=== PATIENT | female | born 1950 | race Caucasian/White ===

== ENCOUNTER 2016-12-28 20:04 | Emergency (ER) | payer MEDICARE ==
[2016-12-28] MEDS ORDERED: ONDANSETRON 4 MG TAB.RAPDIS PO ONE (23:37)
[2016-12-28] MEDS ORDERED: AMOXICILLIN TR/POT CLAVULANATE 500-125 MG TAB PO ONE (23:37)
[2016-12-28] MEDS ORDERED: AMOXICILLIN TR/POT CLAVULANATE 250-125 MG TAB PO ONE (23:37)
[2016-12-28] MEDS ORDERED: HYDROCODONE/ACETAMINOPHEN 5-325 MG 6 TAB/DSPK PO PRN (23:45)
--- NOTE | 2016-12-28 23:46 | ER Document Report ---
ED Animal Bite - General Mode of Arrival: Ambulatory Information source: Patient - HPI Patient complains to provider of: cat bite Location of injury: [place] <PATRICIA LI - Last Filed: 12/29/16 00:12> - General TRAVEL OUTSIDE OF THE [place] IN LAST 30 DAYS: No <KODI REEVES - Last Filed: 12/29/16 05:54> - General Chief Complaint: Cat Bite Stated Complaint: POSSIBLE CAT BITE Notes: Patient is a 66 year old female who presents to the emergency department complaining of a cat bite to her left wrist this morning at 0315. Patient states she washed the bite with warm soapy water immediately after the incident. Patient reports throughout the day the area became tender and swollen. Patient reports her only allergy is to Nexium. Patient also reports bites on her right hand that are not bothersome. Patient denies being on any blood thinners and states her last tetanus shot was last year. (PATRICIA LI) - Related Data Allergies/Adverse Reactions: nickel [Nickel] Allergy (Intermediate, Verified 12/10/15 14:34) itching Past Medical History - General Information source: Patient - Social History Family History: Reviewed & Not Pertinent <PATRICIA LI - Last Filed: 12/29/16 00:12> - Social History Smoking Status: Unknown if Ever Smoked Family History: CAD - A brother of a massive [place]. Mother of stomach cancer. Father and a sister have diabetes. Patient has suicidal ideation: No Patient has homicidal ideation: No - Past Medical History Cardiac Medical History: Reports: Hx Hypercholesterolemia, Hx Hypertension - reports quit her HTN medication in jul. Denies: Hx Coronary Artery Disease, Hx Heart Attack Pulmonary Medical History: Denies: Hx Asthma, Hx Bronchitis, Hx COPD, Hx Pneumonia, Hx Tuberculosis Neurological Medical History: Denies: Hx Cerebrovascular Accident, Hx Seizures Renal/ Medical History: Denies: Hx Peritoneal Dialysis GI Medical History: Reports: Hx Gastroesophageal Reflux Disease Musculoskeltal Medical History: Reports Hx Arthritis Psychiatric Medical History: Reports: Hx Anxiety Denies: Hx Depression Past Surgical History: Reports: Hx Cholecystectomy, Hx Tubal Ligation. Denies: Hx Hysterectomy - Immunizations Immunizations up to date: Yes Hx Diphtheria, Pertussis, Tetanus Vaccination: Yes Hx Pneumococcal Vaccination: 11/16/14 <KODI REEVES - Last Filed: 12/29/16 05:54> Review of Systems - Review of Systems Constitutional: No symptoms reported EENT: No symptoms reported Cardiovascular: No symptoms reported Respiratory: No symptoms reported Gastrointestinal: No symptoms reported Genitourinary: No symptoms reported Female Genitourinary: No symptoms reported Musculoskeletal: No symptoms reported Skin: See HPI, Lesions - and swelling to left wrist Hematologic/Lymphatic: No symptoms reported Neurological/Psychological: No symptoms reported -: Yes All other systems reviewed and negative <PATRICIA LI - Last Filed: 12/29/16 00:12> Physical Exam - Vital signs Interpretation: Normal - General General appearance: Appears well, Alert - HEENT Head: Normocephalic, Atraumatic - Respiratory Respiratory status: No respiratory distress - Extremities General lower extremity: Normal inspection Forearm: Abrasion - Abrasions to left forearm with surrounding erythema and tenderness to palpation over the area which is approximately 10cm in diameter - Neurological Neuro grossly intact: Yes Cognition: Normal Orientation: AAOx4 Frohna Coma Scale Eye Opening: Spontaneous Joseph Coma Scale Verbal: Oriented Frohna Coma Scale Motor: Obeys Commands Frohna Coma Scale Total: 15 Speech: Normal - Psychological Associated symptoms: Normal affect, Normal mood - Skin Skin Temperature: Warm Skin Moisture: Dry Skin Color: Normal <PATRICIA LI - Last Filed: 12/29/16 00:12> Course <PATRICIA LI - Last Filed: 12/29/16 00:12> <KODI REEVES - Last Filed: 12/29/16 05:54> - Re-evaluation Re-evalutation: 12/29/16 Patient with Bite/scratch to forearm and surrounding erythema. It has been marked with a pen. Patient is to return if the redness moves outside the marked area. Patient will be discharged home with Augmentin. No other complaints. Stable for discharge. (KODI REEVES) - Vital Signs Vital signs: Temp Pulse Resp BP Pulse Ox 97.6 F 65 18 117/75 98 12/29/16 00:03 12/29/16 00:03 12/28/16 21:19 12/29/16 00:03 12/29/16 00:03 (PATRICIA LI) (KODI REEVES) Discharge <PATRICIA LI - Last Filed: 12/29/16 00:12> <KODI REEVES - Last Filed: 12/29/16 05:54> - Discharge Clinical Impression: Cat bite Qualifiers: Encounter type: initial encounter Qualified Code(s): W55.01XA - Bitten by cat, initial encounter Cellulitis Qualifiers: Site of cellulitis: extremity Site of cellulitis of extremity: upper extremity Laterality: left Qualified Code(s): L03.114 - Cellulitis of left upper limb Condition: Stable Disposition: HOME, SELF-CARE Instructions: Animal Bites ([facility]), Cellulitis ([facility]) Additional Instructions: Please return to the ER or to your doctor's office in 24-48 hours for wound re- evaluation. Return sooner if you have any concerns. Prescriptions: Amox Tr/Potassium Clavulanate [Augmentin 875-125 Tablet] 1 tab PO BID 10 Days Forms: Return to Work Scribe Attestation: 12/29/16 05:54 I personally performed the services described in the documentation, reviewed and edited the documentation which was dictated to the scribe in my presence, and it accurately records my words and actions. (KODI REEVES) Scribe Documentation - Scribe Written by Valeria:: valeria Ballard, 12/29/16, 1213 acting as scribe for :: Polo <PATRICIA LI - Last Filed: 12/29/16 00:12>
[2016-12-29 00:06] VITALS: BP 117/75
== END 2016-12-29 00:12 | disposition home or self-care (01) ==
LOC: ER 20:04
DX: L03.114 Cellulitis of left upper limb (principal); S61.552A Open bite of left wrist, initial encounter; W55.01XA Bitten by cat, initial encounter
CPT/HCPCS: 99283; A9270 ×4; J3490; S0119

== ENCOUNTER 2016-12-29 12:15 | Emergency (ER) | payer MEDICARE ==
[2016-12-29 12:19] VITALS: BP 136/65
[2016-12-29] MEDS ORDERED: AMPICILLIN SOD/SULBACTAM 3 GM VIAL IV ONE (12:34)
--- NOTE | 2016-12-29 12:35 | ER Document Report ---
ED Medical Screen (RME) - General Stated Complaint: SKIN PROBLEM Time seen by provider: 12:32 Mode of Arrival: Ambulatory Information source: Patient Notes: 66-year-old female seen for Bite infection last night in the volar left wrist. The red area has gone past the pen daniel and she was told to come to the emergency room if that occurred. No fever. She has had 2 doses of Augmentin. Not diabetic. I have greeted and performed a rapid initial assessment of this patient. A comprehensive ED assessment, evaluation of the patient, analysis of test results , and completion of the medical decision making process will be contacted by additional ED providers. TRAVEL OUTSIDE OF THE [place] IN LAST 30 DAYS: No - Related Data Allergies/Adverse Reactions: esomeprazole [From Nexium] Allergy (Verified 12/29/16 12:32) Past Medical History - Past Medical History Cardiac Medical History: Reports: Hx Hypercholesterolemia, Hx Hypertension - reports quit her HTN medication in jul. Denies: Hx Coronary Artery Disease, Hx Heart Attack Pulmonary Medical History: Denies: Hx Asthma, Hx Bronchitis, Hx COPD, Hx Pneumonia, Hx Tuberculosis Neurological Medical History: Denies: Hx Cerebrovascular Accident, Hx Seizures Renal/ Medical History: Denies: Hx Peritoneal Dialysis GI Medical History: Reports: Hx Gastroesophageal Reflux Disease Musculoskeltal Medical History: Reports Hx Arthritis Psychiatric Medical History: Reports: Hx Anxiety Denies: Hx Depression Past Surgical History: Reports: Hx Cholecystectomy, Hx Tubal Ligation. Denies: Hx Hysterectomy - Immunizations Immunizations up to date: Yes Hx Diphtheria, Pertussis, Tetanus Vaccination: Yes Physical Exam - Vital signs Vitals: Temp Pulse Resp BP Pulse Ox 98.4 F 83 14 136/65 H 93 12/29/16 12:18 12/29/16 12:18 12/29/16 12:18 12/29/16 12:18 12/29/16 12:18 Course - Vital Signs Vital signs: Temp Pulse Resp BP Pulse Ox 98.4 F 83 14 136/65 H 93 12/29/16 12:18 12/29/16 12:18 12/29/16 12:18 12/29/16 12:18 12/29/16 12:18
[2016-12-29 13:01] LABS: ABSOLUTE BASOPHILS # (AUTO) 0.1 10^3/uL (0.0-0.2); ABSOLUTE EOSINOPHILS # (AUTO) 0.5 10^3/uL (0.0-0.6); ABSOLUTE LYMPHOCYTES (AUTO) 1.9 10^3/uL (0.5-4.7); ABSOLUTE MONOCYTES (AUTO) 0.7 10^3/uL (0.1-1.4); BASOPHILS % (AUTO) 0.8 % (0-2); EOSINOPHILS % (AUTO) 5.1 % (0-6); HEMATOCRIT 37.2 % (36.0-47.0); HEMOGLOBIN 12.2 g/dL (12.0-15.5); HGB HCT DIFFERENCE -0.6; LYMPHOCYTES % (AUTO) 18.9 % (13-45); MEAN CORPUSCULAR HEMOGLOBIN 28.3 pg (27.0-33.4); MEAN CORPUSCULAR HGB CONC 32.9 g/dL (32.0-36.0); MEAN CORPUSCULAR VOLUME 86 fl (80-97); MONOCYTES % (AUTO) 6.5 % (3-13); RED BLOOD COUNT 4.31 10^6/uL (3.72-5.28); RED CELL DISTRIBUTION WIDTH 14.2 % (11.5-14.0); SEGMENTED NEUTROPHILS % (AUTO) 68.7 % (42-78); WHITE BLOOD COUNT 10.1 10^3/uL (4.0-10.5)
[2016-12-29 13:21] LABS: ALANINE AMINOTRANSFERASE 31 U/L (9-52); ALBUMIN 4.6 g/dL (3.5-5.0); ALKALINE PHOSPHATASE 79 U/L (38-126); ANION GAP 10 (5-19); ASPARTATE AMINO TRANSFERASE 28 U/L (14-36); BILIRUBIN,TOTAL 0.5 mg/dL (0.2-1.3); BLOOD UREA NITROGEN 9 mg/dL (7-20); CALCIUM 9.2 mg/dL (8.4-10.2); CARBON DIOXIDE 29 mmol/L (22-30); CHLORIDE 105 mmol/L (98-107); CREATININE RESULT 0.79 mg/dL (0.52-1.25); GLUCOSE 96 mg/dL (75-110); SODIUM 144.2 mmol/L (137-145); TOTAL PROTEIN 8.1 g/dL (6.3-8.2)
[2016-12-29] MEDS ORDERED: OXYCODONE-ACETAMINOPHEN 5-325 MG TABLET PO ONE (14:47)
--- NOTE | 2016-12-29 14:48 | ER Document Report ---
ED General - General Chief Complaint: Cat Bite Stated Complaint: SKIN PROBLEM Mode of Arrival: Ambulatory Information source: Patient Notes: 66-year-old female presents with complaints of left forearm cellulitis from cat bite , patient was seen here yesterday area was outlined, denies any discharge from the area. Patient took 1 dose of Augmentin last night 1 dose this morning and notes that there is a little bit of redness outside of the outline. Denies any streaking or any other concerns. Denies any fevers TRAVEL OUTSIDE OF THE [place] IN LAST 30 DAYS: No - HPI Onset: Other Onset/Duration: Persistent Quality of pain: Achy Severity: Mild Pain Level: 1 Associated symptoms: None Exacerbated by: Denies Relieved by: Denies Similar symptoms previously: Yes Recently seen / treated by doctor: Yes - Related Data Allergies/Adverse Reactions: esomeprazole [From Nexium] Allergy (Verified 12/29/16 12:32) Past Medical History - General Information source: Patient - Social History Smoking Status: Never Smoker Cigarette use (# per day): No Chew tobacco use (# tins/day): No Smoking Education Provided: No Frequency of alcohol use: None Drug Abuse: None Family History: CAD - A brother of a massive [place]. Mother of stomach cancer. Father and a sister have diabetes. Patient has suicidal ideation: No Patient has homicidal ideation: No - Past Medical History Cardiac Medical History: Reports: Hx Hypercholesterolemia, Hx Hypertension - reports quit her HTN medication in jul. Denies: Hx Coronary Artery Disease, Hx Heart Attack Pulmonary Medical History: Denies: Hx Asthma, Hx Bronchitis, Hx COPD, Hx Pneumonia, Hx Tuberculosis Neurological Medical History: Denies: Hx Cerebrovascular Accident, Hx Seizures Renal/ Medical History: Denies: Hx Peritoneal Dialysis GI Medical History: Reports: Hx Gastroesophageal Reflux Disease Musculoskeltal Medical History: Reports Hx Arthritis Psychiatric Medical History: Reports: Hx Anxiety Denies: Hx Depression Past Surgical History: Reports: Hx Cholecystectomy, Hx Tubal Ligation. Denies: Hx Hysterectomy - Immunizations Immunizations up to date: Yes Hx Diphtheria, Pertussis, Tetanus Vaccination: Yes Hx Pneumococcal Vaccination: 11/16/14 Review of Systems - Review of Systems Notes: REVIEW OF SYSTEMS: CONSTITUTIONAL : Denies fever, chills, or sweats. Denies recent illness. EENT: Denies eye, ear, throat, or mouth pain or symptoms. Denies nasal or sinus congestion or discharge. Denies throat, tongue, or mouth swelling or difficulty swallowing. CARDIOVASCULAR: Denies chest pain. Denies palpitations or racing or irregular heart beat. Denies ankle edema. RESPIRATORY: Denies cough, cold, or chest congestion. Denies shortness of breath, difficulty breathing, or wheezing. GASTROINTESTINAL: Denies abdominal pain or distention. Denies nausea, vomiting , or diarrhea. Denies blood in vomitus, stools, or per rectum. Denies black, tarry stools. Denies constipation. GENITOURINARY: Denies difficulty urinating, painful urination, burning, frequency, blood in urine, or discharge. FEMALE GENITOURINARY: Denies vaginal bleeding, heavy or abnormal periods, irregular periods. Denies vaginal discharge or odor. MUSCULOSKELETAL: Denies back or neck pain or stiffness. Denies joint pain or swelling. SKIN: Left forearm redness HEMATOLOGIC : Denies easy bruising or bleeding. LYMPHATIC: Denies swollen, enlarged glands. NEUROLOGICAL: Denies confusion or altered mental status. Denies passing out or loss of consciousness. Denies dizziness or lightheadedness. Denies headache. Denies weakness or paralysis or loss of use of either side. Denies problems with gait or speech. Denies sensory loss, numbness, or tingling. Denies seizures. PSYCHIATRIC: Denies anxiety or stress. Denies depression, suicidal ideation, or homicidal ideation. ALL OTHER SYSTEMS REVIEWED AND NEGATIVE. Dictation was performed using [employer] voice recognition software PHYSICAL EXAMINATION: GENERAL: Well-appearing, well-nourished and in no acute distress. HEAD: Atraumatic, normocephalic. EYES: Pupils equal round and reactive to light, extraocular movements intact, conjunctiva are normal. ENT: Nares patent, oropharynx clear without exudates. Moist mucous membranes. NECK: Normal range of motion, supple without lymphadenopathy LUNGS: Breath sounds clear to auscultation bilaterally and equal. No wheezes rales or rhonchi. HEART: Regular rate and rhythm without murmurs ABDOMEN: Soft, nontender, nondistended abdomen. No guarding, no rebound. No masses appreciated. Female : deferred Musculoskeletal: Normal range of motion, no pitting or edema. No cyanosis. NEUROLOGICAL: Cranial nerves grossly intact. Normal speech, normal gait. Normal sensory, motor exams PSYCH: Normal mood, normal affect. SKIN: redness of left forearm that notes to 3 mm extension from the outline proximally. no discharge , mutiple superficial abrasions Physical Exam - Vital signs Vitals: Temp Pulse Resp BP Pulse Ox 98.4 F 83 14 136/65 H 93 12/29/16 12:18 12/29/16 12:18 12/29/16 12:18 12/29/16 12:18 12/29/16 12:18 Course - Re-evaluation Re-evalutation: 12/29/16 14:51 Lab work notes no significant abnormality, patient does have a small amount of extension however has only been on antibiotics for less than 24 hours, at this time I do not believe it is appropriate for IV antibiotics or admission, as the patient has not had the ability to fail outpatient treatment yet. An x-ray has been ordered to rule out any foreign body as well. Given that tetanus is up-to- date and patient is on appropriate antibiotics, I believe another days worth of oral antibiotics prior to IV antibiotics is more appropriate form of action. Family has been made clear that they return tomorrow with further extension that they will require IV antibiotics and admission After performing a Medical Screening Examination, I estimate there is LOW risk for OPEN FRACTURE, COMPARTMENT SYNDROME, TENDON RUPTURE, ACUTE NEUROVASCULAR INJURY, or RETAINED FOREIGN BODY, thus I consider the discharge disposition reasonable. Also, there is no evidence or peritonitis, sepsis, or toxicity. The patient and I have discussed the diagnosis and risks, and we agree with discharging home with close follow-up with the understanding that symptoms and presentations can change. We also discussed returning to the Emergency Department immediately if new or worsening symptoms occur. We have discussed the symptoms which are most concerning (e.g., changing or worsening pain, fever , numbness, weakness, cool or painful digits) that necessitate immediate return. 12/29/16 15:18 - Vital Signs Vital signs: Temp Pulse Resp BP Pulse Ox 98.4 F 83 14 136/65 H 93 12/29/16 12:18 12/29/16 12:18 12/29/16 12:18 12/29/16 12:18 12/29/16 12:18 - Laboratory Result Diagrams: 12/29/16 12:47 12/29/16 12:47 Laboratory results interpreted by me: 12/29/16 12:47 RDW 14.2 H Discharge - Discharge Clinical Impression: Cat bite Qualifiers: Encounter type: initial encounter Qualified Code(s): W55.01XA - Bitten by cat, initial encounter Cellulitis Qualifiers: Site of cellulitis: extremity Site of cellulitis of extremity: upper extremity Laterality: left Qualified Code(s): L03.114 - Cellulitis of left upper limb Condition: Stable Disposition: HOME, SELF-CARE Additional Instructions: recheck in 24 hours for evaluation or sooner if there are any other concerns
== END 2016-12-29 15:30 | disposition home or self-care (01) ==
LOC: ER 12:15
DX: S51.852A Open bite of left forearm, initial encounter (principal); L03.114 Cellulitis of left upper limb; W55.01XA Bitten by cat, initial encounter; Y92.009 Unspecified place in unspecified non-institutional (private) residence as the place of occurrence of the external cause; I10 Essential (primary) hypertension; Z88.8 Allergy status to other drugs, medicaments and biological substances
CPT/HCPCS: 99283; 36415; 85025; 80053; 73090; A9270

== ENCOUNTER 2017-03-22 06:12 | Emergency (ER) | payer MEDICARE ==
[2017-03-22] MEDS ORDERED: HYDROCODONE/ACETAMINOPHEN 5-325 MG TABLET PO ONE (08:47)
--- NOTE | 2017-03-22 08:48 | ER Document Report ---
ED General - General Chief Complaint: Fall Injury Stated Complaint: FALL/HIP PAIN Mode of Arrival: Medic Information source: Patient Notes: 66-year-old female presents with complaints of right hip pain and low back pain after fall. Patient is able to angulate denies any numbness weakness loss of bowel or bladder function. TRAVEL OUTSIDE OF THE [place] IN LAST 30 DAYS: No - HPI Onset: Just prior to arrival Onset/Duration: Sudden Quality of pain: Achy Severity: Mild Pain Level: 1 Associated symptoms: Other Exacerbated by: Movement Relieved by: Denies Similar symptoms previously: No Recently seen / treated by doctor: No - Related Data Allergies/Adverse Reactions: esomeprazole [From Nexium] Allergy (Verified 03/22/17 06:15) Past Medical History - Social History Smoking Status: Never Smoker Cigarette use (# per day): No Chew tobacco use (# tins/day): No Smoking Education Provided: No Frequency of alcohol use: Occasional Drug Abuse: None Family History: CAD - A brother of a massive [place]. Mother of stomach cancer. Father and a sister have diabetes. - Past Medical History Cardiac Medical History: Reports: Hx Hypercholesterolemia, Hx Hypertension - reports quit her HTN medication in jul. Denies: Hx Coronary Artery Disease, Hx Heart Attack Pulmonary Medical History: Denies: Hx Asthma, Hx Bronchitis, Hx COPD, Hx Pneumonia, Hx Tuberculosis Neurological Medical History: Denies: Hx Cerebrovascular Accident, Hx Seizures Renal/ Medical History: Denies: Hx Peritoneal Dialysis GI Medical History: Reports: Hx Gastroesophageal Reflux Disease Musculoskeltal Medical History: Reports Hx Arthritis Psychiatric Medical History: Reports: Hx Anxiety Denies: Hx Depression Past Surgical History: Reports: Hx Cholecystectomy, Hx Tubal Ligation. Denies: Hx Hysterectomy - Immunizations Immunizations up to date: Yes Hx Diphtheria, Pertussis, Tetanus Vaccination: Yes Hx Pneumococcal Vaccination: 11/16/14 Review of Systems - Review of Systems Notes: REVIEW OF SYSTEMS: CONSTITUTIONAL : Denies fever, chills, or sweats. Denies recent illness. EENT: Denies eye, ear, throat, or mouth pain or symptoms. Denies nasal or sinus congestion or discharge. Denies throat, tongue, or mouth swelling or difficulty swallowing. CARDIOVASCULAR: Denies chest pain. Denies palpitations or racing or irregular heart beat. Denies ankle edema. RESPIRATORY: Denies cough, cold, or chest congestion. Denies shortness of breath, difficulty breathing, or wheezing. GASTROINTESTINAL: Denies abdominal pain or distention. Denies nausea, vomiting , or diarrhea. Denies blood in vomitus, stools, or per rectum. Denies black, tarry stools. Denies constipation. GENITOURINARY: Denies difficulty urinating, painful urination, burning, frequency, blood in urine, or discharge. FEMALE GENITOURINARY: Denies vaginal bleeding, heavy or abnormal periods, irregular periods. Denies vaginal discharge or odor. MUSCULOSKELETAL: Admits to back pain right hip pain SKIN: Denies rash, lesions or sores. HEMATOLOGIC : Denies easy bruising or bleeding. LYMPHATIC: Denies swollen, enlarged glands. NEUROLOGICAL: Denies confusion or altered mental status. Denies passing out or loss of consciousness. Denies dizziness or lightheadedness. Denies headache. Denies weakness or paralysis or loss of use of either side. Denies problems with gait or speech. Denies sensory loss, numbness, or tingling. Denies seizures. PSYCHIATRIC: Denies anxiety or stress. Denies depression, suicidal ideation, or homicidal ideation. ALL OTHER SYSTEMS REVIEWED AND NEGATIVE. Dictation was performed using [employer] voice recognition software PHYSICAL EXAMINATION: GENERAL: Well-appearing, well-nourished and in no acute distress. HEAD: Atraumatic, normocephalic. EYES: Pupils equal round and reactive to light, extraocular movements intact, conjunctiva are normal. ENT: Nares patent, oropharynx clear without exudates. Moist mucous membranes. NECK: Normal range of motion, supple without lymphadenopathy LUNGS: Breath sounds clear to auscultation bilaterally and equal. No wheezes rales or rhonchi. HEART: Regular rate and rhythm without murmurs ABDOMEN: Soft, nontender, nondistended abdomen. No guarding, no rebound. No masses appreciated. Female : deferred Musculoskeletal: Normal range of motion, no pitting or edema. No cyanosis. NEUROLOGICAL: Cranial nerves grossly intact. Normal speech, normal gait. Normal sensory, motor exams PSYCH: Normal mood, normal affect. SKIN: Warm, Dry, normal turgor, no rashes or lesions noted. Physical Exam - Vital signs Vitals: Temp Pulse Resp BP Pulse Ox 97.3 F 73 19 130/63 H 98 03/22/17 06:15 03/22/17 06:15 03/22/17 06:15 03/22/17 06:15 03/22/17 06:15 Course - Re-evaluation Re-evalutation: 03/22/17 17:06 Patient notes on palpation of her back that there is no tenderness, she is able to ambulate with no difficulty. Patient was given pain control and is otherwise well-appearing. I will discharge home with pain control and follow- up with primary care physician for further evaluation. Patient has been instructed to return immediately if symptoms worsen After performing a Medical Screening Examination, I estimate there is LOW risk for INTRACRANIAL HEMORRHAGE, UNSTABLE SPINE FRACTURE, CENTRAL CORD SYNDROME, CAUDA EQUINA, THORACIC AORTIC DISSECTION, PNEUMOTHORAX, PERFORATED BOWEL, RUPTURED ABDOMINAL AORTIC ANEURYSM, ACUTE TENDON RUPTURE, COMPARTMENT SYNDROME, or OPEN FRACTURE, thus I consider the discharge disposition reasonable. Also, there is no evidence or peritonitis, sepsis, or toxicity. I have reevaluated this patient multiple times and no significant life threatening changes are noted. The patient and I have discussed the diagnosis and risks, and we agree with discharging home to follow-up with their primary doctor with the understanding that symptoms and presentations can change. We also discussed returning to the Emergency Department immediately if new or worsening symptoms occur. We have discussed the symptoms which are most concerning (e.g., bloody stool, fever, changing or worsening pain, vomiting) that necessitate immediate return. - Vital Signs Vital signs: Temp Pulse Resp BP Pulse Ox 98.0 F 70 18 144/78 H 97 03/22/17 09:35 03/22/17 09:35 03/22/17 09:35 03/22/17 09:35 03/22/17 09:35 - Diagnostic Test Radiology reviewed: Image reviewed, Reports reviewed - No acute abnormality Discharge - Discharge Clinical Impression: Hip pain, right Fall Qualifiers: Encounter type: initial encounter Qualified Code(s): W19.XXXA - Unspecified fall, initial encounter Low back pain Qualifiers: Chronicity: acute Back pain laterality: right Sciatica presence: without sciatica Qualified Code(s): M54.5 - Low back pain Condition: Stable Disposition: HOME, SELF-CARE Instructions: Low Back Pain ([facility]) Prescriptions: Hydrocodone/Acetaminophen [Craig 5-325 mg Tablet] 1 tab PO Q6 #14 tablet Forms: Return to Work Referrals: BAILEY,BRITTNEE, DO [Primary Care Provider] - Follow up tomorrow
[2017-03-22 09:42] VITALS: BP 144/78
== END 2017-03-22 09:42 | disposition home or self-care (01) ==
LOC: ER 06:12
DX: M25.551 Pain in right hip (principal); M54.5 Low back pain; W06.XXXA Fall from bed, initial encounter; Z88.8 Allergy status to other drugs, medicaments and biological substances; I10 Essential (primary) hypertension
CPT/HCPCS: 99284; 73502; A9270

== ENCOUNTER → 2018-04-06 | Outpatient (CLI) | payer MEDICARE ==
--- NOTE | 2018-04-06 16:44 | RADIOLOGY REPORT (SQ) ---
EXAM DESCRIPTION: CT CHEST WITHOUT COMPLETED DATE/TIME: 04/06/2018 1:15 pm REASON FOR STUDY: SOLITARY PULMONARY NODULE (R91.1) R91.1 SOLITARY PULMONARY NODULE COMPARISON: 12/10/2015 CT chest TECHNIQUE: CT scan performed of the chest without intravenous contrast. Images reviewed with lung, soft tissue and bone windows. Reconstructed coronal and sagittal MPR images reviewed. All images st ored on PACS. All CT scanners at this facility use dose modulation, iterative reconstruction, and/or weight based d osing when appropriate to reduce radiation dose to as low as reasonably achievable (ALARA). [facility]: Dose Right [facility]: CareDose [facility]: Dose Right [facility]: Teradose 4D [facility]: [employer] RADIATION DOSE: CT Rad equipment meets quality standard of care and radiation dose reduction techniq ues were employed. CTDIvol: 8.4 mGy. DLP: 329 mGy-cm. mGy. LIMITATIONS: No technical limitations. FINDINGS: LUNGS AND PLEURA: There are multiple smooth round noncalcified subpleural granulomas scatt ered throughout both lungs, the most conspicuous is in the left upper lobe axial image 46. These are all stable compared to 12/10/2015. Stability over 2 year interval indicates benign etiology. No acute infiltrates. No pleural effusion. No pneumothorax. No interstitial lung changes. No hype rinflation worrisome for obstructive lung disease. HILAR AND MEDIASTINAL STRUCTURES: No identified masses or abnormal nodes. No obvious aneurysm. HEART AND VASCULAR STRUCTURES: No aneurysm. No pericardial effusion. UPPER ABDOMEN: No significant findings. 2 cm cyst left lobe liver, benign. Air in left-sided intrah epatic bile ducts post sphincterotomy. Post cholecystectomy. . THYROID AND OTHER SOFT TISSUES: No masses. No adenopathy. BONES: Diffuse thoracic spondylotic change with L2 vertebra plana deformity and bilateral L2 laminect teresa, new compared to 2016. HARDWARE: None in the chest. OTHER: No other significant findings. IMPRESSION: Multiple benign noncalcified smooth round subpleural nodules less than 5 mm in size thro ughout both lungs. These are stable over 2 year interval. Vertebra plana deformity at L2 with bilateral laminectomies. TECHNICAL DOCUMENTATION: JOB ID: [id number] Quality ID # 436: Final reports with documentation of one or more dose reduction techniques (e.g., Au tomated exposure control, adjustment of the mA and/or kV according to patient size, use of iterative reconstruction technique) 2010 [employer] [place]- All Rights Reserved Reading location - IP/workstation name: [email or web address]
== END ==
LOC: RAD 13:04
PROVIDERS: ATTEND Internal Medicine Critical Care Medicine
DX: R91.1 Solitary pulmonary nodule (principal)
CPT/HCPCS: 71250

== ENCOUNTER → 2018-05-03 | Outpatient (CLI) | payer MEDICARE ==
--- NOTE | 2018-05-04 17:18 | RADIOLOGY REPORT (SQ) ---
EXAM DESCRIPTION: CAROTID DOPPLER COMPLETED DATE/TIME: 05/03/2018 2:15 pm REASON FOR STUDY: BRUIT R09.89 OTH SYMPTOMS AND SIGNS INVOLVING THE CIRC AND RESP SY COMPARISON: CT CHEST 04/06/2018 TECHNIQUE: Grayscale ultrasound, Doppler velocity and spectra, and color Doppler images acquired of the extra-cranial carotid and vertebral arteries. Images stored on PACS. LIMITATIONS: None. FINDINGS: RIGHT CAROTID CCA Velocities: Within normal limits. ICA Velocities Peak systolic 0.73 m/s. End diastolic 0.18 m/s. Proximal ICA/CCA peak systolic ratio 0.8. Spectra normal. No significant plaque. LEFT CAROTID CCA Velocities: Within normal limits. ICA Velocities Peak systolic 0.84 m/s. End diastolic 0.23 m/s. Proximal ICA/CCA peak systolic ratio 1.2. Spectra normal. No significant plaque. VERTEBRAL ARTERIES: There is retrograde flow in the right vertebral artery. Antegrade flow left vert ebral artery. SUBCLAVIAN ARTERIES: On the right side, there is retrograde flow in the subclavian artery. There is decreased systolic blood pressure in the right arm compared to the left, 30 mm Hg difference. Findin gs are worrisome for right-sided subclavian steal. Consider follow-up CT angio of the neck and circl e of [place] for followup Antegrade flow left subclavian artery. OTHER: No other significant finding. IMPRESSION: No flow significant stenosis of the carotid bifurcations. There is retrograde flow in the right vertebral artery and subclavian artery, with a decrease in syst olic blood pressure in the right arm. 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 Co nsiders follow-up CT angio neck and picayune of [place] COMMENT: Quality ID #195: Velocity criteria are extrapolated from the diameter data as defined by t he Society of Radiologists in Ultrasound Consensus Conference. Radiology 2003: 229; 340-346. TECHNICAL DOCUMENTATION: JOB ID: [id number] [employer]- All Rights Reserved Reading location - IP/workstation name: [email or web address]
== END ==
LOC: SP 09:41
PROVIDERS: ATTEND Family Medicine
DX: R09.89 Other specified symptoms and signs involving the circulatory and respiratory systems (principal)
CPT/HCPCS: 93880

== ENCOUNTER → 2018-05-14 | Outpatient (CLI) | payer MEDICARE ==
--- NOTE | 2018-05-14 14:39 | RADIOLOGY REPORT (SQ) ---
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 Multiplanar reconstruction. 3-D MIPS and Vol ume-rendered images acquired at the workstation and saved to PACS. Images are reviewed in soft tis tico, bone, lung windows. All CT scanners at this facility use dose modulation, iterative reconstruction, and/or weight based d osing when appropriate to reduce radiation dose to as low as reasonably achievable (ALARA). [facility]: Dose Right [facility]: CareDose [facility]: Dose Right [facility]: Teradose 4D [facility]: [employer] CONTRAST TYPE AND DOSE: contrast/concentration: Isovue 370.00 mg/ml; Total Contrast Delivered: 80.0 ml; Total Saline Delivered: 75.0 ml RENAL FUNCTION: Creatinine 0.7 LIMITATIONS: None. FINDINGS: EXTRACRANIAL CIRCULATION: AORTIC ARCH: Normal three-vessel origin. The right brachiocephalic artery continues into the neck as the right common carotid artery. There i s occlusion of the right subclavian artery at its takeoff from the brachiocephalic artery. A large r ight vertebral artery enhances with contrast, and fills a small caliber right subclavian artery. Thi s is compatible with the findings on carotid Doppler 05/03/2018 which demonstrated retrograde flow in the right vertebral artery and a depressed right upper extremity systolic blood pressure as compared to the left. RIGHT CAROTIDS: Patent common, internal and external carotid arteries without suggestion of significa nt stenosis or irregular plaque. No dissection. Please note that the right carotid bifurcation is i n the prevertebral space on axial images 52-59. RIGHT VERTEBRAL: Patent. No dissection. Right vertebral artery is larger than the left, and provide s flow into the right subclavian artery from subclavian steal. LEFT CAROTIDS: Patent common, internal and external carotid arteries without suggestion of significan t stenosis or irregular plaque. No dissection. Please note that the left carotid bifurcation is in the prevertebral space on axial images 50-59. LEFT VERTEBRAL: Patent. No dissection. OTHER: No neck masses or adenopathy. Lung apices are clear. Mild degenerative disc changes cervical spine. . OTHER: 3-D reconstructions confirm findings. INTRACRANIAL CIRCULATION: ANTERIOR CIRCULATION: Widely patent right and left carotid arteries at the skullbase, widely patent anterior and middle cerebral arteries bilaterally without aneurysm or vascular malformation. Patent posterior communicating arteries bilaterally. No aneurysm. POSTERIOR CIRCULATION: Symmetric size vertebral arteries at the foramen magnum. Good enhancement of the basilar artery and cerebellar arteries. BRAIN PARENCHYMA: No abnormal masses or enhancement. Ventricles extra-axial CSF spaces are unremark able. No gross CT evidence of acute large territory ischemic change. No acute intracranial hemorrha ge, mass effect, or shift. ORBITS, PARANASAL SINUSES AND SOFT TISSUES: Unremarkable. Post cataract surgery. 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 No flow significant stenosis at the carotid bifurcations. COMMENT: Quality ID #195: Measurements of distal internal carotid diameter were used as the denomina tor for stenosis measurement. TECHNICAL DOCUMENTATION: JOB ID: [id number] Quality ID # 436: Final reports with documentation of one or more dose reduction techniques (e.g., Au tomated exposure control, adjustment of the mA and/or kV according to patient size, use of iterative reconstruction technique) 2010 [employer]- All Rights Reserved Reading location - IP/workstation name: [email or web address]
== END ==
LOC: RAD 12:47
PROVIDERS: ATTEND Family Medicine
DX: G45.8 Other transient cerebral ischemic attacks and related syndromes (principal)
CPT/HCPCS: 70496; 70498; 82565

== ENCOUNTER → 2019-03-31 | Outpatient (CLI) | payer MEDICARE ==
--- NOTE | 2019-03-31 09:08 | WOMENS IMAGING REPORT ---
EXAM DESCRIPTION: BILAT SCREENING MAMMO W/CAD COMPLETED DATE/TIME: 03/31/2019 8:06 am REASON FOR STUDY: ROUTINE BILATERAL SCREENING;Z12.31 Z12.31 ENCNTR SCREEN MAMMOGRAM FOR MALIGNANT N EOPLASM OF ENRIQUE COMPARISON: [id number] EXAM PARAMETERS: Standard craniocaudal and mediolateral oblique views of each breast recorded using digital acquisition. Read with the assistance of CAD. .[facility] - [employer] Expert Version 9.2 LIMITATIONS: None. FINDINGS: Findings present which are benign by mammographic criteria. No suspicious masses, calcifi cations or architectural distortion. Pertinent benign findings: Stable calcifications. Benign mammographic findings may include one or more of the following: Smooth masses, popcorn/rim/co arse calcifications, asymmetries, post-procedure changes, and lesions with long-standing stability. IMPRESSION: ASSESSMENT: BENIGN MAMMOGRAPHIC FINDINGS. BIRADS 2 BREAST DENSITY: b. There are scattered areas of fibroglandular density. BIRAD: 2 BENIGN FINDING(S) RECOMMENDATION: ROUTINE SCREENING COMMENT: The patient has been notified of the results by letter per SA requirements. Additional no tification policies are in place for contacting patient with suspicious or incomplete findings. Quality ID #225: The [employer] recommends an annual screening mammogram for women aged 40 years or over. This facility utilizes a reminder system to ensure that all patients receive reminder letters, and/or direct phone calls for appointments. This includes reminders for routine scr eening mammograms, diagnostic mammograms, or other Breast Imaging Interventions when appropriate. Th is patient will be placed in the appropriate reminder system. TECHNICAL DOCUMENTATION: FINDING NUMBER: (1) ASSESSMENT: (1) JOB ID: [id number] [employer]- All Rights Reserved Reading location - IP/workstation name: [facility]-
== END ==
LOC: WI 07:49
PROVIDERS: ATTEND Family Medicine
DX: Z12.31 Encounter for screening mammogram for malignant neoplasm of breast (principal)
CPT/HCPCS: 77067

== ENCOUNTER 2019-06-29 10:50 | Emergency (ER) | payer MEDICARE ==
--- NOTE | 2019-06-29 12:04 | RADIOLOGY REPORT (SQ) ---
EXAM DESCRIPTION: HIP LEFT AP/LATERAL COMPLETED DATE/TIME: 06/29/2019 11:55 am REASON FOR STUDY: Collin tenderness COMPARISON: None. NUMBER OF VIEWS: Two views. TECHNIQUE: AP pelvis and additional frog-leg view of the left hip. LIMITATIONS: None. FINDINGS: MINERALIZATION: Decreased LEFT HIP: No fracture or dislocation. No worrisome bone lesions. Mild degenerative change. Joint s paces well maintained RIGHT HIP: No fracture or dislocation. No worrisome bone lesions. Mild degenerative change. Joint spaces are well maintained. PUBIS AND ISCHIUM: No fracture. SACRUM: No fracture or dislocation. No worrisome bone lesions. Degenerative change at the sacroiliac joints with osteophytosis. LOWER LUMBAR SPINE: No fracture or dislocation. No worrisome bone lesions. Lower lumbar spondylosis and facet arthropathy. SOFT TISSUES: No findings. OTHER: No other significant finding. IMPRESSION: No evidence of acute bony abnormality. Pelvic fractures are often occult on plain radiographs. If strong clinical suspicion for fracture, recommend CT or MR. TECHNICAL DOCUMENTATION: JOB ID: [id number]- All Rights Reserved Reading location - IP/workstation name: [email or web address]
[2019-06-29] MEDS ORDERED: NAPROXEN 250 MG TABLET PO ONE (12:48)
--- NOTE | 2019-06-29 12:48 | ER Document Report ---
ED General - General Chief Complaint: Hip Injury Stated Complaint: HIP PAIN Time Seen by Provider: 06/29/19 12:36 Primary Care Provider: BRITTNEE BALIEY DO [Primary Care Provider] - Follow up in 3-5 days Mode of Arrival: Ambulatory Information source: Patient, [facility] Records TRAVEL OUTSIDE OF THE [place] IN LAST 30 DAYS: No - Related Data Allergies/Adverse Reactions: esomeprazole [From Nexium] Adverse Reaction (Verified 06/29/19 10:52) Past Medical History - Social History Smoking Status: Never Smoker Chew tobacco use (# tins/day): No Frequency of alcohol use: None Drug Abuse: None Family History: CAD Patient has suicidal ideation: No Patient has homicidal ideation: No - Past Medical History Cardiac Medical History: Reports: Hx Hypercholesterolemia, Hx Hypertension - reports quit her HTN medication in jul. Denies: Hx Coronary Artery Disease, Hx Heart Attack Pulmonary Medical History: Denies: Hx Asthma, Hx Bronchitis, Hx COPD, Hx Pneumonia, Hx Tuberculosis Neurological Medical History: Denies: Hx Cerebrovascular Accident, Hx Seizures Renal/ Medical History: Denies: Hx Peritoneal Dialysis GI Medical History: Reports: Hx Gastroesophageal Reflux Disease Musculoskeletal Medical History: Reports Hx Arthritis Psychiatric Medical History: Reports: Hx Anxiety Denies: Hx Depression Past Surgical History: Reports: Hx Cholecystectomy, Hx Tubal Ligation. Denies: Hx Hysterectomy - Immunizations Immunizations up to date: Yes Hx Diphtheria, Pertussis, Tetanus Vaccination: Yes Hx Pneumococcal Vaccination: 11/16/14 Physical Exam - Vital signs Vitals: Temp Pulse BP Pulse Ox 98.3 F 66 137/67 H 97 06/29/19 10:56 06/29/19 10:56 06/29/19 10:56 06/29/19 10:56 Course - Vital Signs Vital signs: Temp Pulse Resp BP Pulse Ox 98.3 F 66 137/67 H 97 06/29/19 10:56 06/29/19 10:56 06/29/19 10:56 06/29/19 10:56 Discharge - Discharge Clinical Impression: Left hip pain, Arthritis Condition: Good Disposition: HOME, SELF-CARE Instructions: Arthritis ([facility]), Sciatica ([facility]) Additional Instructions: Follow up with your [id number] hours for further care or return to the ED IMMEDIATELY if symptoms worsen or you have any concerns. If you cannot afford to follow up with your primary care physician a list of low cost clinics have been provided at the end of your discharge papers as well. Most prescribed medications have multiple side effects. The safest thing to do is when filling your prescription speak to your pharmacist regarding possible interactions with your normal home medications and over the counter medications such as Ibuprofen, Tylenol, Benadryl. If you experience any symptoms that cause you discomfort or concern you should discontinue the medication immediately and return to the emergency room or call your primary care physician. Prescriptions: Meloxicam [Mobic] 7.5 mg PO DAILY #14 tablet Forms: Elevated Blood Pressure Referrals: BRITTNEE BAILEY DO [Primary Care Provider] - Follow up in 3-5 days
--- NOTE | 2019-06-29 12:58 | ER Document Report ---
ED General - General Chief Complaint: Hip Injury Stated Complaint: HIP PAIN Time Seen by Provider: 06/29/19 12:36 Primary Care Provider: BRITTNEE BAILEY DO [Primary Care Provider] - Follow up in 3-5 days Mode of Arrival: Ambulatory Information source: Patient, [facility] Records Notes: 69-year-old female with hypertension, hyperlipidemia, arthritis presents with left hip pain that started 2 years prior to arrival with worsening of pain over the last 3 days. Patient states she had a fall off of her bed 2 years ago but no recent injury. She describes the pain as throbbing, burning with some radiation down her posterior thigh. Patient denies any leg weakness, recent illness, fever, chills, nausea, vomiting, abdominal pain, saddle anesthesia, urinary retention, fecal incontinence, history of IV drug abuse. TRAVEL OUTSIDE OF THE [place] IN LAST 30 DAYS: No - HPI Onset: Other Onset/Duration: Persistent, Worse Quality of pain: Burning, Throbbing Severity: Moderate Associated symptoms: denies: Chest pain, Fever, Leg swelling, Nausea, Vomiting, Shortness of breath Exacerbated by: Movement, Walking Relieved by: Remaining still Similar symptoms previously: Yes Recently seen / treated by doctor: Yes - Related Data Allergies/Adverse Reactions: esomeprazole [From Nexium] Adverse Reaction (Verified 06/29/19 10:52) Past Medical History - General Information source: Patient, [facility] Records - Social History Smoking Status: Never Smoker Chew tobacco use (# tins/day): No Frequency of alcohol use: None Drug Abuse: None Lives with: Alone Family History: CAD Patient has suicidal ideation: No Patient has homicidal ideation: No - Past Medical History Cardiac Medical History: Reports: Hx Hypercholesterolemia, Hx Hypertension - reports quit her HTN medication in jul. Denies: Hx Coronary Artery Disease, Hx Heart Attack Pulmonary Medical History: Denies: Hx Asthma, Hx Bronchitis, Hx COPD, Hx Pneumonia, Hx Tuberculosis Neurological Medical History: Denies: Hx Cerebrovascular Accident, Hx Seizures Renal/ Medical History: Denies: Hx Peritoneal Dialysis GI Medical History: Reports: Hx Gastroesophageal Reflux Disease Musculoskeletal Medical History: Reports Hx Arthritis Psychiatric Medical History: Reports: Hx Anxiety Denies: Hx Depression Past Surgical History: Reports: Hx Cholecystectomy, Hx Tubal Ligation. Denies: Hx Hysterectomy - Immunizations Immunizations up to date: Yes Hx Diphtheria, Pertussis, Tetanus Vaccination: Yes Hx Pneumococcal Vaccination: 11/16/14 Review of Systems - Review of Systems Notes: REVIEW OF SYSTEMS: CONSTITUTIONAL : Denies fever, chills, or sweats. Denies recent illness. Denies weight loss, recent hospitalizations. EENT: Denies visual changes, eye pain. Denies sore throat, oral lesions, difficulty swallowing. CARDIOVASCULAR: Denies chest pain. Denies palpitations. Denies lower extremity edema. RESPIRATORY: Denies cough. Denies shortness of breath, wheezing. GASTROINTESTINAL: Denies abdominal pain or distention. Denies nausea, vomiting, or diarrhea. Denies blood in vomitus, stools, or per rectum. Denies black, tarry stools. Denies constipation. GENITOURINARY: Denies difficulty urinating, painful urination, frequency, blood in urine, or vaginal discharge. MUSCULOSKELETAL: Denies neck pain or stiffness. Denies joint swelling. SKIN: Denies rash, lesions or sores. HEMATOLOGIC : Denies easy bruising or bleeding. LYMPHATIC: Denies swollen glands. NEUROLOGICAL: Denies confusion or altered mental status. Denies loss of consciousness. Denies dizziness or lightheadedness. Denies headache. Denies weakness or paralysis. Denies problems difficulty with ambulation, slurred speech. Denies sensory loss, numbness, or tingling. Denies seizures. PSYCHIATRIC: Denies anxiety or stress. Denies depression, suicidal ideation, or homicidal ideation. Denies visual or auditory hallucinations. Physical Exam - Vital signs Vitals: Temp Pulse BP Pulse Ox 98.3 F 66 137/67 H 97 06/29/19 10:56 06/29/19 10:56 06/29/19 10:56 06/29/19 10:56 - Notes Notes: PHYSICAL EXAMINATION: GENERAL: Well-appearing, well-nourished and in no acute distress. HEAD: Atraumatic, normocephalic. EYES: Pupils equal round and reactive to light, extraocular movements intact, conjunctiva are normal. ENT: Nares patent, oropharynx clear without exudates. Moist mucous membranes. NECK: Normal range of motion, supple without lymphadenopathy LUNGS: Breath sounds clear to auscultation bilaterally and equal. No wheezes r ales or rhonchi. HEART: Regular rate and rhythm without murmurs ABDOMEN: Soft, nontender, nondistended abdomen. No guarding, no rebound. No masses appreciated. Female : deferred Musculoskeletal: Normal range of motion, no pitting or edema. No cyanosis. Tenderness over the left sciatic notch. Left hip with full range of motion, distal pulses intact, femoral pulse intact, good coloration, 5/5 dorsi and plantar flexion. NEUROLOGICAL: Cranial nerves grossly intact. Normal speech, normal gait. Normal sensory, motor exams PSYCH: Normal mood, normal affect. SKIN: Warm, Dry, normal turgor, no rashes or lesions noted. Course - Re-evaluation Re-evalutation: 06/29/19 12:57 Hip X-Ray 06/29/19 00:00 IMPRESSION: No evidence of acute bony abnormality. Pelvic fractures are often occult on plain radiographs. If strong clinical suspicion for fracture, recommend CT or MR. Temp Pulse Resp BP Pulse Ox 98.3 F 66 137/67 H 97 06/29/19 10:56 06/29/19 10:56 06/29/19 10:56 06/29/19 10:56 69-year-old female with arthritis presents with left buttock and left hip pain that has been ongoing for 2 years with worsening of pain over the last few days. Patient denies any new falls. Vital signs reviewed and within normal limits. Patient does not appear toxic or dehydrated. She is in no acute distress. X- ray of the hip was obtained and showed significant degeneration but no fracture. Patient has full range of motion of her left lower extremity. Patient advised to take Tylenol, ice the area and follow-up with her primary care physician. Patient was evaluated and treated as appropriate for the patient's presenting symptoms and complaint, with consideration of any critical or life threatening conditions that may be associated with their obtained history and exam as noted above. All results were discussed with patient. Patient provided the opportunity to ask questions, and express concerns. Patient was educated on treatments based on their presumed diagnosis as noted above. At this time we will discharge the patient with return precautions and follow-up recommendations. Verbal discharge instructions given a the bedside. Medication warnings reviewed. Patient is in agreement with this plan and has verbalized understanding of return precautions. After careful consideration I feel that that patient can be safely discharged from the emergency department, they were advised to followup with a primary care physician in 2-3 days. Dictation on this chart was performed using voice recognition software and may result in unintended grammatical, spelling, syntax or errors. - Vital Signs Vital signs: Temp Pulse Resp BP Pulse Ox 98.3 F 66 137/67 H 97 06/29/19 10:56 06/29/19 10:56 06/29/19 10:56 06/29/19 10:56 - Diagnostic Test Radiology reviewed: Image reviewed, Reports reviewed Discharge - Discharge Clinical Impression: Left hip pain, Arthritis Condition: Good Disposition: HOME, SELF-CARE Instructions: Arthritis ([facility]), Sciatica ([facility]) Additional Instructions: Follow up with your [id number] hours for further care or return to the ED IMMEDIATELY if symptoms worsen or you have any concerns. If you cannot afford to follow up with your primary care physician a list of low cost clinics have been provided at the end of your discharge papers as well. Most prescribed medications have multiple side effects. The safest thing to do is when filling your prescription speak to your pharmacist regarding possible interactions with your normal home medications and over the counter medications such as Ibuprofen, Tylenol, Benadryl. If you experience any symptoms that cause you discomfort or concern you should discontinue the medication immediately and return to the emergency room or call your primary care physician. Prescriptions: Meloxicam [Mobic] 7.5 mg PO DAILY #14 tablet Forms: Elevated Blood Pressure Referrals: BRITTNEE BAILEY DO [Primary Care Provider] - Follow up in 3-5 days
[2019-06-29] MEDS ORDERED: LIDOCAINE 5% (700 MG) TRANSDERMAL ADH..PATCH TP SCH (13:00)
[2019-06-29 13:40] VITALS: BP 133/56
== END 2019-06-29 13:40 | disposition home or self-care (01) ==
LOC: ER 10:50
DX: M25.552 Pain in left hip (principal); M19.90 Unspecified osteoarthritis, unspecified site; E78.00 Pure hypercholesterolemia, unspecified; Z90.49 Acquired absence of other specified parts of digestive tract; Z98.51 Tubal ligation status
CPT/HCPCS: 99283; 73502; A9270

== ENCOUNTER 2020-11-11 12:20 | Emergency (ER) | payer MEDICARE ==
[2020-11-11] MEDS ORDERED: HYDROCODONE/ACETAMINOPHEN 5-325 MG TABLET PO ONE ×2 (13:35→17:09)
--- NOTE | 2020-11-11 13:37 | ER Document Report ---
ED Medical Screen (RME) - General Chief Complaint: Fall Injury Stated Complaint: FALL/RIGHT WRIST PAIN Time Seen by Provider: 11/11/20 13:29 Primary Care Provider: BRITTNEE BAILEY DO [Primary Care Provider] - Follow up as needed Mode of Arrival: Wheelchair Information source: Patient Notes: 70-year-old female presented to ED for complaint of trip and fall at [facility] around noon time. She states she does have pain to the face nose and right arm. She states that she did have a bloody nose while at the [facility]. She does have abrasions to the forehead and nose she has pain and swelling and bruising to the right forearm and wrist. We will get CT of the face and x-rays of the forearm and wrist. She is alert and oriented respirations regular no nlabored at this time. She does have a history of asthma essential tremors. She states she does not smoke she rarely drinks and does not use any illicit drugs. I have greeted and performed a rapid initial assessment of this patient. A comprehensive ED assessment and evaluation of the patient, analysis of test results and completion of medical decision making process will be conducted by an additional ED providers. TRAVEL OUTSIDE OF THE [place] IN LAST 30 DAYS: No - Related Data Allergies/Adverse Reactions: esomeprazole [From Nexium] Adverse Reaction (Verified 11/11/20 13:27) Past Medical History - Past Medical History Cardiac Medical History: Reports: Hx Hypercholesterolemia, Hx Hypertension - reports quit her HTN medication in jul. Denies: Hx Coronary Artery Disease, Hx Heart Attack Pulmonary Medical History: Denies: Hx Asthma, Hx Bronchitis, Hx COPD, Hx Pneumonia, Hx Tuberculosis Neurological Medical History: Denies: Hx Cerebrovascular Accident, Hx Seizures Renal/ Medical History: Denies: Hx Peritoneal Dialysis GI Medical History: Reports: Hx Gastroesophageal Reflux Disease Musculoskeltal Medical History: Reports Hx Arthritis Psychiatric Medical History: Reports: Hx Anxiety Denies: Hx Depression Past Surgical History: Reports: Hx Cholecystectomy, Hx Tubal Ligation. Denies: Hx Hysterectomy - Immunizations Immunizations up to date: Yes Hx Diphtheria, Pertussis, Tetanus Vaccination: Yes Physical Exam - Vital signs Vitals: Temp Pulse Resp BP Pulse Ox 98.2 F 76 20 150/63 H 99 11/11/20 12:24 11/11/20 12:24 11/11/20 12:24 11/11/20 12:24 11/11/20 12:24 Course - Vital Signs Vital signs: Temp Pulse Resp BP Pulse Ox 98.2 F 76 20 150/63 H 99 11/11/20 12:24 11/11/20 12:24 11/11/20 12:24 11/11/20 12:24 11/11/20 12:24 Doctor's Discharge - Discharge Referrals: BRITTNEE BAILEY, [Primary Care Provider] - Follow up as needed
--- NOTE | 2020-11-11 14:25 | RADIOLOGY REPORT (SQ) ---
EXAM DESCRIPTION: CT FACIAL AREA WITHOUT IMAGES COMPLETED DATE/TIME: 11/11/2020 1:06 pm REASON FOR STUDY: Facial pain and injury after fall COMPARISON: 05/14/2018 TECHNIQUE: Noncontrasted images through the facial bones and orbits windowed for bone and soft tissu e. Additional coronal and sagittal reconstructed images reviewed. All images stored on PACS. All CT scanners at this facility use dose modulation, iterative reconstruction, and/or weight based d osing when appropriate to reduce radiation dose to as low as reasonably achievable (ALARA). [facility]: Dose Right [facility]: CareDose [facility]: Dose Right [facility]: Teradose 4D [facility]: [employer] RADIATION DOSE: mGy. LIMITATIONS: None. FINDINGS: FACIAL BONES: No fracture or bone lesion. ORBITS: Intact. No fracture. Symmetric intact globes and retroorbital soft tissues. PARANASAL SINUSES: Clear. No significant mucosal thickening, mass or fluid. No nasal polyps. 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 Maxillary sinus outlets are patent. SOFT TISSUES: No mass or edema. INFERIOR BRAIN: Limited view. No acute findings. OTHER: No other significant finding. IMPRESSION: NO ACUTE FINDINGS. TECHNICAL DOCUMENTATION: JOB ID: [id number] Quality ID # [id number]: Final reports with documentation of one or more dose reduction techniques (e.g., Au tomated exposure control, adjustment of the mA and/or kV according to patient size, use of iterative reconstruction technique) 2010 [employer]- All Rights Reserved Reading location - IP/workstation name: [id number]
--- NOTE | 2020-11-11 14:29 | RADIOLOGY REPORT (SQ) ---
EXAM DESCRIPTION: FOREARM RIGHT; WRIST RIGHT 3 VIEWS IMAGES COMPLETED DATE/TIME: 11/11/2020 12:59 pm REASON FOR STUDY: Fall with pain to the right forearm and wrist. COMPARISON: None. NUMBER OF VIEWS: Five views. TECHNIQUE: AP and lateral view of the left forearm. AP, lateral and oblique views of the left wrist . LIMITATIONS: None. FINDINGS: MINERALIZATION: Osteopenia. BONES: There is an acute impacted intra-articular fracture of the distal radius. Overriding of the f racture fragments. Nondisplaced fracture of the ulnar styloid process. Normal joint space alignment at the wrist. 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 Proximal radius and ulna are intact. SOFT TISSUES: Soft tissue swelling at the dorsal wrist. OTHER: No other significant finding. IMPRESSION: Acute intra-articular fracture distal radius. Nondisplaced fracture ulnar styloid proce ss. Moderate osteopenia. TECHNICAL DOCUMENTATION: JOB ID: [id number] 2010 [employer]- All Rights Reserved Reading location - IP/workstation name: [email or web address]
--- NOTE | 2020-11-11 14:29 | RADIOLOGY REPORT (SQ) ---
EXAM DESCRIPTION: FOREARM RIGHT; WRIST RIGHT 3 VIEWS IMAGES COMPLETED DATE/TIME: 11/11/2020 12:59 pm REASON FOR STUDY: Fall with pain to the right forearm and wrist. COMPARISON: None. NUMBER OF VIEWS: Five views. TECHNIQUE: AP and lateral view of the left forearm. AP, lateral and oblique views of the left wrist . LIMITATIONS: None. FINDINGS: MINERALIZATION: Osteopenia. BONES: There is an acute impacted intra-articular fracture of the distal radius. Overriding of the f racture fragments. Nondisplaced fracture of the ulnar styloid process. Normal joint space alignment at the wrist. 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 Proximal radius and ulna are intact. SOFT TISSUES: Soft tissue swelling at the dorsal wrist. OTHER: No other significant finding. IMPRESSION: Acute intra-articular fracture distal radius. Nondisplaced fracture ulnar styloid proce ss. Moderate osteopenia. TECHNICAL DOCUMENTATION: JOB ID: [id number] 2010 [employer]- All Rights Reserved Reading location - IP/workstation name: [email or web address]
[2020-11-11] MEDS ORDERED: HYDROCODONE/ACETAMINOPHEN 5-325 MG (6 TAB/ER DISP) PO PRN (17:10)
--- NOTE | 2020-11-11 17:19 | ER Document Report ---
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 Patient states she was shopping at [employer] and tripped over furniture causing her to fall. Patient reports some abrasions to her face and pain to her right wrist. Patient states she is right hand dominant and is not on any blood thinners. Patient reports history of a ruptured vertebrae in her lower back 3-4 years ago and was put on Gabapentin. TRAVEL OUTSIDE OF THE [place] IN LAST 30 DAYS: No - Related Data Allergies/Adverse Reactions: esomeprazole [From Verdiem] Adverse Reaction (Verified 11/11/20 13:27) Home Medications: ropinerol, tremor medicine, cymbacort, albuterol, Past Medical History - General Information source: Patient - Social History Smoking Status: Never Smoker Cigarette use (# per day): No Chew tobacco use (# tins/day): No Frequency of alcohol use: Rare Drug Abuse: None Lives with: Family Family History: CAD - Past Medical History Cardiac Medical History: Reports: Hx Hypercholesterolemia, Hx Hypertension - reports quit her HTN medication in jul. GI Medical History: Reports: Hx Gastroesophageal Reflux Disease Musculoskeletal Medical History: Reports Hx Arthritis Psychiatric Medical History: Reports: Hx Anxiety Past Surgical History: Reports: Hx Cholecystectomy, Hx Tubal Ligation - Immunizations Immunizations up to date: Yes Hx Diphtheria, Pertussis, Tetanus Vaccination: Yes Hx Pneumococcal Vaccination: 11/16/14 Review of Systems - Review of Systems Constitutional: No symptoms reported EENT: No symptoms reported Cardiovascular: No symptoms reported Respiratory: No symptoms reported Gastrointestinal: No symptoms reported Genitourinary: No symptoms reported Female Genitourinary: No symptoms reported Musculoskeletal: See HPI, Other - R wrist pain Skin: See HPI, Other - Abrasions to face Hematologic/Lymphatic: No symptoms reported Neurological/Psychological: No symptoms reported -: Yes All other systems reviewed and negative Physical Exam - Vital signs Vitals: Temp Pulse Resp BP Pulse Ox 98.2 F 76 20 150/63 H 99 11/11/20 12:24 11/11/20 12:24 11/11/20 12:24 11/11/20 12:24 11/11/20 12:24 - General General appearance: Appears well, Alert - HEENT Eyes: Normal Pupils: PERRL Notes: Abrasions to the forehead and nose. No deformity. - Respiratory Respiratory status: No respiratory distress Chest status: Nontender Breath sounds: Normal Chest palpation: Normal - Cardiovascular Rhythm: Regular Heart sounds: Normal auscultation Murmur: No - Abdominal Inspection: Normal Distension: No distension Bowel sounds: Normal Tenderness: Nontender - Extremities General lower extremity: Normal inspection. No: Edema Notes: Moderate soft tissue swelling to the right wrist with deformity. Mild right ulnar deviation. Neurovascularly intact distally. - Neurological Neuro grossly intact: Yes Cognition: Normal Orientation: AAOx4 [place] Coma Scale Eye Opening: Spontaneous [place] Coma Scale Verbal: Oriented Joseph Coma Scale Motor: Obeys Commands Joseph Coma Scale Total: 15 Speech: Normal Sensory: Normal - Psychological Associated symptoms: Normal affect, Normal mood - Skin Skin Temperature: Warm Skin Moisture: Dry Skin Color: Normal Course - Re-evaluation Re-evalutation: 11/11/20 17:15 MDM 70 year old FOOSH and left distal radius fx and ulna. Right handed. Clearly a mechanical fall. Ct ordered from triage and abrasions on face. No back or neck pain. Discussed with Dr. Shetty and he will see. - Vital Signs Vital signs: Temp Pulse Resp BP Pulse Ox 98.9 F 79 18 113/63 96 11/11/20 17:40 11/11/20 17:40 11/11/20 17:40 11/11/20 17:40 11/11/20 17:40 - Laboratory Results Critical Laboratory Results Reviewed: No Critical Results - Radiology Results Critical Radiology Results Reviewed: No Critical Results Discharge - Discharge Clinical Impression: Left wrist pain, Abrasion Wrist fracture, left Qualifiers: Encounter type: initial encounter Fracture type: closed Qualified Code(s): S62.102A - Fracture of unspecified carpal bone, left wrist, initial encounter for closed fracture Condition: Stable Disposition: HOME, SELF-CARE Instructions: Fractured Radius and Ulna ([facility]), Fractured Radius ([facility]) Additional Instructions: Rest, ice and elevate left wrist. Take your medicine as directed. Please return here for increased pain, other problems or other concerns. Call Dr. Shetty in the morning tomorrow for follow up. Prescriptions: Polyethylene Glycol 3350 [Miralax Powder 17 gm/Packet] 1 packet PO DAILY #7 pkg Forms: Return to Work Referrals: BRITTNEE BAILEY DO [ACTIVE STAFF] - Follow up as needed AVELINO SHETTY JR, DO [ACTIVE PROVISIONAL STAFF] - 11/12/20 I personally performed the services described in the documentation, reviewed and edited the documentation which was dictated to the scribe in my presence, and it accurately records my words and actions.
[2020-11-11 17:42] VITALS: BP 113/63
== END 2020-11-11 17:41 | disposition home or self-care (01) ==
LOC: ER 12:20
DX: S62.102A Fracture of unspecified carpal bone, left wrist, initial encounter for closed fracture (principal); S60.812A Abrasion of left wrist, initial encounter; M25.531 Pain in right wrist; W18.09XA Striking against other object with subsequent fall, initial encounter; Z88.8 Allergy status to other drugs, medicaments and biological substances; Z79.899 Other long term (current) drug therapy; I10 Essential (primary) hypertension
CPT/HCPCS: 99285; 73090; 73110; 70486; A9270 ×2

== ENCOUNTER 2020-11-15 07:01 | Day surgery (SDC) | payer MEDICARE ==
[~2020-11-15 07:01] MED LIST: CEFAZOLIN 2 GM/D5W RTU 2 GM/50 ML RTUPB IV ONE; CEFAZOLIN 2 GM/D5W RTU 2 GM/50 ML RTUPB IV PRN; FENTANYL CITRATE INJ/PF 100 MCG/2 ML AMPUL ONE; MIDAZOLAM 2 MG/2 ML INJ ONE; PROPOFOL INJ 200 MG/20 ML VIAL IV ONE
[2020-11-15] MEDS ORDERED: LIDOCAINE 1% INJ-PF (10 MG/ML) 30 ML SDV ONE (09:00)
[2020-11-15] MEDS ORDERED: BUPIVACAINE HCL 0.25 % INJ/PF (2.5 MG/1 ML) 30 ML VIAL ONE (09:00)
[2020-11-15] MEDS ORDERED: PROMETHAZINE HCL INJ 25 MG/1 ML VIAL IV PRN ×2 (09:53)
[2020-11-15] MEDS ORDERED: DIPHENHYDRAMINE HCL 50 MG/ML VIAL IV PRN (09:53)
[2020-11-15] MEDS ORDERED: MORPHINE SULFATE 10 MG/ML INJ IV PRN ×2 (09:53→11:21)
[2020-11-15] MEDS ORDERED: FENTANYL CITRATE INJ/PF 100 MCG/2 ML AMPUL IV PRN ×3 (09:53)
[2020-11-15] MEDS ORDERED: MEPERIDINE HCL/PF INJ 25 MG/1 ML DISP.SYRIN IV PRN (09:53)
[2020-11-15] MEDS ORDERED: OXYCODONE-ACETAMINOPHEN 5-325 MG TABLET PO PRN ×2 (09:53→11:21)
--- NOTE | 2020-11-15 11:00 | Operative Report ---
Operative Report DATE OF SURGERY: 11/15/20 PREOPERATIVE DIAGNOSIS: Right intra-articular distal radius fracture. POSTOPERATIVE DIAGNOSIS: Right intra-articular distal radius fracture. OPERATION: Right distal radius open reduction internal fixation SURGEON: AVELINO العراقي JR ANESTHESIA: GA COMPLICATIONS: None ESTIMATED BLOOD LOSS: 10 cc PROCEDURE: INDICATIONS FOR OPERATION: This is a 70 year-old female who fell at home landing on her outstretched right hand, sustained a right distal radius fracture. Close reduction was attempted but maintain reduction was not adequate. After informed consent was obtained, we scheduled the patient for open reduction internal fixation of the right distal radius. DESCRIPTION OF OPERATION: The patient was brought to the operating room and placed in the supine position. Then, 2 g of cefazolin was given preoperatively. After satisfactory general endotracheal anesthesia was administrated, a tourniq uet, was placed on the right upper arm, the right upper extremity was prepped and draped in regular sterile routine fashion. Esmarch was utilized to exsanguinate the arm and the tourniquet was then inflated. The fracture was evaluated under fluoroscopy, a reduction maneuver was performed, and a K wire was placed for provisional fixation. The Flexor Carpi Radialis approach was performed. The FCR tendon was identified and was retracted ulnarly. The fascia was then opened, and the pronator quadratus was incised sharply from the lateral border of the distal radius and then distally along the watershed line. The fracture was identified and was and lightly debrided. The fracture was intra- articular and volarly displaced and shortened. I was able to achieve a good holly and of the fracture site volarly and radially. A short and narrow Acumed plate was selected. Under fluoroscopy it was positioned appropriately followed by insertion of 2 distal K wires. After this the fracture was then further slightly improved in its reduction followed by placement of a screw in the oblong hole. The screw was drilled and measured to a size 10 and incompletely tightened to allow for some further modification of placement. The styloid K wire and one of the distal K wires were removed to allow for insertion of distal screws. I then proceeded to drill and placed the distal row of screws followed by further locking screws in the proximal row. I ensured under fluoroscopy that the screws were of appropriate length. The oblong screw was then tightened followed by application of the other 2 pro ximal screws with nonlocking screws. This was again checked under fluoroscopy. Near-anatomic reduction was achieved. The mini C-arm confirmed appropriate reduction and good alignment of the radial height as well as the inclination. The wound was then copiously irrigated with sterile saline solution. Briefly the fracture was taken through live flouroscopy to ensure that there was no dorsal or articular penetration of the screws. The pronator quadratus was sewn over the plate with 3-0 Vicryl suture. The subcutaneous tissue was then closed with 3-0 monocryl and the skin with running 3-0 nylon. Dressing was then applied in the form of xeroform, 4x4, ABD, and a loose wrap with a elian and kerlex, followed by a loosely applied nilda wrap. They were awakened from anesthesia and transferred to the PACU in stable condition.
--- NOTE | 2020-11-15 11:20 | Discharge Summary ---
Discharge Summary (SDC) - Discharge Final Diagnosis: Right intra-articular distal radius fracture Date of Surgery: 11/15/20 Discharge Date: 11/15/20 Forms: ASU Anesthesia D/C Instruction, Discharge POC-Surgical Service Treatment or Instructions: Patient was provided with instructions from the office. They are instructed to be nonweightbearing right upper extremity until further evaluation in my office. They are to follow-up in my office in approximately 10 days. I have placed them in a volar plaster splint that is well-padded. They are to leave this dressing in place until seen in my office. I encouraged her range of motion in the interval. They have been provided with pain medication from the office Take pain medication as prescribed, no operating motor vehicles while taking narcotics. Follow-up with Dr. Bereket العراقي, orthopedic surgeon at [facility] for surgery, in 10 days. Call for an appointment. . [address], [place] [address] Referrals: BEREKET العراقي JR, DO [ACTIVE PROVISIONAL STAFF] - Discharge Diet: As Tolerated Respiratory Treatments at Home: Deep Breathing/Coughing Discharge Activity: No Driving, No Lifting/Push/Pulling, No tub bath Report the Following to Your Physician Immediately: Shortness of Breath, Fever over 101 Degrees, Unusual Bleeding, Drainage-Yellow
[2020-11-15] MEDS ORDERED: KETOROLAC TROMETHAMINE 60 MG/2 ML SDV IM PRN (11:21)
[2020-11-15] MEDS ORDERED: RINGERS SOLUTION,LACTATED 1,000 ML IV PRN (11:21)
[2020-11-15] MEDS ORDERED: ONDANSETRON HCL INJ/PF 4 MG/2 ML SDV IV PRN (11:21)
[2020-11-15] MEDS ORDERED: OXYCODONE-ACETAMINOPHEN 5-325 MG TABLET ONE (11:31)
--- NOTE | 2020-11-15 12:24 | RADIOLOGY REPORT (SQ) ---
EXAM DESCRIPTION: WRIST RIGHT 2 VIEWS; NO CHG FLUORO IMAGES COMPLETED DATE/TIME: 11/15/2020 11:02 am; 11/15/2020 11:01 am REASON FOR STUDY: RIGHT WRIST ORIF ASSISTED WITH FLUORO IN OR S52.501A UNSP FRACTURE OF THE LOWER E ND OF RIGHT RADIUS, INI COMPARISON: None. FLUOROSCOPY TIME: 29 seconds 5 images saved to PACS. TECHNIQUE: Intra-operative images acquired during surgical procedure to evaluate progress. NUMBER OF IMAGES: 5 LIMITATIONS: None. FINDINGS: Images from fluoro document placement of a volar compression plate on the distal radius wi th multiple screws. IMPRESSION: ORIF right wrist. Refer to operative note for further information. COMMENT: Quality ID [id number]: Final reports for procedures using fluoroscopy that document radiation exp osure indices, or exposure time and number of fluorographic images (if radiation exposure indices are not available) Please consult full operative report of the attending physician for description of the procedure. TECHNICAL DOCUMENTATION: JOB ID: [id number] 2010 [employer]- All Rights Reserved Reading location - IP/workstation name: [email or web address]
--- NOTE | 2020-11-15 12:24 | RADIOLOGY REPORT (SQ) ---
EXAM DESCRIPTION: WRIST RIGHT 2 VIEWS; NO CHG FLUORO IMAGES COMPLETED DATE/TIME: 11/15/2020 11:02 am; 11/15/2020 11:01 am REASON FOR STUDY: RIGHT WRIST ORIF ASSISTED WITH FLUORO IN OR S52.501A UNSP FRACTURE OF THE LOWER E ND OF RIGHT RADIUS, INI COMPARISON: None. FLUOROSCOPY TIME: 29 seconds 5 images saved to PACS. TECHNIQUE: Intra-operative images acquired during surgical procedure to evaluate progress. NUMBER OF IMAGES: 5 LIMITATIONS: None. FINDINGS: Images from fluoro document placement of a volar compression plate on the distal radius wi th multiple screws. IMPRESSION: ORIF right wrist. Refer to operative note for further information. COMMENT: Quality ID [id number]: Final reports for procedures using fluoroscopy that document radiation exp osure indices, or exposure time and number of fluorographic images (if radiation exposure indices are not available) Please consult full operative report of the attending physician for description of the procedure. TECHNICAL DOCUMENTATION: JOB ID: [id number] 2010 [employer]- All Rights Reserved Reading location - IP/workstation name: [email or web address]
[2020-11-15 13:46] VITALS: BP 131/72
[2020-11-15] MEDS ORDERED: METOCLOPRAMIDE HCL INJ/PF 10 MG/2 ML SDV ONE (14:27)
[2020-11-15] MEDS ORDERED: DEXAMETHASONE SOD PHOSPHATE INJ 4 MG/1 ML VIAL ONE (14:27)
[2020-11-15] MEDS ORDERED: KETOROLAC TROMETHAMINE 60 MG/2 ML SDV ONE (14:27)
[2020-11-15] MEDS ORDERED: ONDANSETRON HCL INJ/PF 4 MG/2 ML SDV ONE (14:27)
== END 2020-11-15 12:35 | disposition home or self-care (01) ==
LOC: OROUT 07:01
PROVIDERS: ATTEND Orthopaedic Surgery
DX: S52.571A Other intraarticular fracture of lower end of right radius, initial encounter for closed fracture (principal); W01.0XXA Fall on same level from slipping, tripping and stumbling without subsequent striking against object, initial encounter; Y92.512 Supermarket, store or market as the place of occurrence of the external cause; I10 Essential (primary) hypertension; F41.0 Panic disorder [episodic paroxysmal anxiety]; I25.10 Atherosclerotic heart disease of native coronary artery without angina pectoris; Z01.812 Encounter for preprocedural laboratory examination; Z20.828 Contact with and (suspected) exposure to other viral communicable diseases; Z79.899 Other long term (current) drug therapy
CPT/HCPCS: 36415; 84132; 0241U ×4; 73100; 25608; J2250; J1100; J1885; J3010; J2765; J2405; J2704; J0690; C9803; C1713; C1769; J3490